=== PATIENT | female | born 1935 | race American Indian/Alaskan Native ===

== ENCOUNTER 2019-02-05 06:43 | Day surgery (SDC) | payer MEDICARE ==
[~2019-02-05 06:43] MED LIST: SODIUM CHLORIDE 0.9% 1000 ML 1,000 ML IV SCH; ceFAZolin/Water 2 GM/20 ML 2 GM/20 ML SYRINGE IV NR
[2019-02-05] MEDS ORDERED: HEPARIN 10,000 UNITS/10 ML VIAL ONE (07:28)
[2019-02-05] MEDS ORDERED: SODIUM CHLORIDE 0.9% 250ML 250 ML ONE (07:28)
[2019-02-05] MEDS ORDERED: THROMBIN (RECOMBINANT) 5,000 UNIT VIAL TP ONE ×2 (07:29→09:16)
[2019-02-05] MEDS ORDERED: PROTAMINE SULFATE 50 MG/5 ML INJ ONE (07:29)
[2019-02-05] MEDS ORDERED: GELATIN SPONGE SIZE 100 TP ONE ×2 (07:29→09:15)
--- NOTE | 2019-02-05 07:30 | Anesthesia Day of Surgery ---
Anesthesia Day of Surgery - Day of Surgery Patient Examined: Yes Patient H&P Reviewed: Yes Patient is NPO: Yes Beta Blockers: Yes
--- NOTE | 2019-02-05 07:30 | Anesthesia Consultation ---
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 ACCESS RT UPPER CHEST) Hx Hypothyroidism: Yes - Hematic Hx Anemia: Yes - Other Systems Hx Alcohol Use: No Hx Substance Use: No Hx Cancer: No
[2019-02-05] MEDS ORDERED: fentaNYL 100 MCG/2 ML INJ IV PRN (07:38)
[2019-02-05] MEDS ORDERED: LIDOCAINE MPF (2%) 20 MG/1 ML VIAL 5 ML ONE (07:41)
[2019-02-05] MEDS ORDERED: PROPOFOL 200 MG/20 ML VIAL IV ONE (07:41)
[2019-02-05] MEDS ORDERED: HYDROmorphone 1 MG/1 ML INJ ONE (07:41)
[2019-02-05] MEDS ORDERED: HEPARIN 10,000 UNITS/10 ML VIAL IR ONE (09:13)
[2019-02-05] MEDS ORDERED: SODIUM CHLORIDE 0.9% 250 ML IVPB IR ONE (09:14)
[2019-02-05] MEDS ORDERED: SODIUM CHLORIDE 0.9% IRR 1,500 ML BOTTLE IR ONE (09:16)
[2019-02-05] MEDS ORDERED: PROTAMINE SULFATE 50 MG/5 ML INJ IV ONE (09:48)
[2019-02-05] MEDS ORDERED: ONDANSETRON 4 MG/2 ML INJ ONE (10:06)
[2019-02-05] MEDS ORDERED: oxyCODONE 5 MG TAB PO PRN (10:16)
--- NOTE | 2019-02-05 10:16 | Post Operative Note ---
Pre-op diagnosis: ESRD Post-op diagnosis: same Procedure: Left Arm AV Graft Insertion Anesthesia: GETA Surgeon: MARITA MASON Estimated blood loss: other (25ml) Pathology: none Condition: stable Disposition: PACU
--- NOTE | 2019-02-05 10:21 | Short Stay Summary ---
Short Stay Documentation Date of service: 02/05/19 - History H&P: obtained from office Past Medical History: diabetes, ESRD, stroke - Allergies and Medications Current Medications: Allergies No Known Allergies Allergy (Verified 02/04/19 09:41) Home Medications Medication Instructions Recorded Confirmed Last Taken Type Allopurinol 100 mg PO DAILY 02/02/19 02/05/19 02/04/19 09:00 History Aspirin 81 mg PO DAILY 02/02/19 02/05/19 02/04/19 19:00 History Atorvastatin 10 mg PO HS 02/02/19 02/05/19 02/04/19 19:00 History Carvedilol 3.125 mg PO BID 02/02/19 02/05/19 02/04/19 19:00 History Ferrous Sulfate 325 mg PO DAILY 02/02/19 02/05/19 02/04/19 19:00 History Folic Acid 1 mg PO DAILY 02/02/19 02/05/19 02/04/19 09:00 History Patric Packet 1 packet PO BID 02/02/19 02/05/19 02/04/19 19:00 History Levothyroxine 25 meq PO DAILY 02/02/19 02/05/19 02/04/19 09:00 History Memantine 10 mg PO DAILY 02/02/19 02/05/19 02/04/19 09:00 History Ranitidine HCl 150 mg PO BID 02/02/19 02/05/19 02/04/19 19:00 History Valsartan 80 mg PO BID 02/02/19 02/05/19 02/04/19 19:00 History Vitamin C 500 mg PO DAILY 02/02/19 02/05/19 02/04/19 09:00 History traMADol 50 mg PO PRN 02/02/19 02/05/19 02/04/19 19:00 History Active Medications Fentanyl (Sublimaze) 25 mcg IV Q15M PRN PRN Reason: Pain , Severe (7-10) Stop: 02/05/19 22:00 Sodium Chloride (Nacl 0.9% 1000 Ml) 1,000 mls @ 42 mls/hr IV DIRECT DAR Last Admin: 02/05/19 07:30 Dose: 42 mls/hr Documented by: Cefazolin Sodium (Ancef/Sterile Water 2 Gm/20 Ml) 2 gm in 20 mls @ 80 mls/hr IV PREOP NR; Protocol Stop: 02/05/19 23:59 Oxycodone HCl (Roxicodone) 5 mg PO Q4H PRN PRN Reason: Pain, Moderate (4-6) - Physical exam General appearance: no acute distress Lungs: Normal air movement Heart: Regular rate Extremities: no ischemia - Hospital course Hospital course: The patient was taken to the operating room and had a left arm av graft insertion performed. please refer to the operative note concerning the details of the procedure. the patient tolerated the procedure well and was discharged home in stable condition. - Disposition Condition at discharge: Stable Disposition: DC-01 TO HOME OR SELFCARE - Discharge Diagnoses (1) ESRD (end stage renal disease) Status: Acute Short Stay Discharge Plan Follow up with: MARIAN MILLS [Other] - 7 Days
--- NOTE | 2019-02-05 11:16 | Operative Report ---
STAFF SURGEON: Dr. Sylvain Vasquez. PREOPERATIVE DIAGNOSIS: End-stage renal disease. POSTOPERATIVE DIAGNOSIS: End-stage renal disease. PROCEDURE PERFORMED: Left arm AV graft insertion. COMPLICATIONS: None. ESTIMATED BLOOD LOSS: 25 mL. ANESTHESIA: General. INDICATIONS FOR PROCEDURE: This is an 83-year-old female with end-stage renal disease, on hemodialysis via right IJ PermCath who was in need of access creation. The patient had a preoperative vein mapping and was found to be in need of AV graft insertion. The patient and the patient's family were explained the risks, benefits and alternatives of procedure, expressed understanding and wished to proceed. DESCRIPTION OF PROCEDURE: After appropriate consent was obtained, the patient was brought back to the operating room and placed on the operating table in supine position with the left arm extended. The patient was given appropriate medication for general anesthesia, had LMA placed without difficulty. The left arm was prepped and draped in usual sterile fashion with ChloraPrep. Appropriate preoperative antibiotics were administered. Appropriate timeout was performed indicating correct patient, procedure, and site of the procedure. I then began the operation by making a longitudinal incision near the antecubital fossa. This was carried through the subcutaneous tissue with a combination of blunt dissection and electrocautery. Dissection was continued through the bicipital aponeurosis which allowed to expose the brachial artery. This was found to be suitable for arterial inflow. This was mobilized for appropriate distance both proximally and distally. We then proceeded to make a transverse incision near the axilla. This was carried through the subcutaneous tissue with a combination of blunt dissection and electrocautery. Dissection was continued through the fascia overlying the axillary neurovascular bundle. Axillary vein was identified and found to be suitable for venous outflow and was mobilized for appropriate distance both proximally and distally. We then proceeded to create a subcutaneous tunnel between the two incision sites bringing through a 4-7 mm Propaten graft. The patient was given 5000 units of unfractionated heparin. After appropriate time had elapsed, the vascular clamps were placed on the brachial artery, both proximally and distally. Longitudinal arteriotomy was made with an 11 blade and extended with Benitez scissors. The graft was appropriately spatulated and then an end-to-side anastomosis was performed with a running 6-0 Prolene suture. Once complete, flow was reestablished through the graft, we had a nice pulsatile flow. The graft was then cut to an appropriate length and spatulated. Vascular clamps were placed on the axillary vein, both proximally and distally. Longitudinal venotomy was made with an #11 blade and extended with Benitez scissors and then end-to-side anastomosis was performed with a running 5-0 Prolene suture. Once complete, flow was reestablished through the graft with a nice palpable thrill. The patient was then given a protamine for heparinization reversal. We then elected to obtain further hemostasis along the suture lines with hemostatic agents. Once we were satisfied with hemostasis, we then proceeded to close both wounds with a deep subcutaneous layer with interrupted 3-0 PDS and skin was approximated with iker. Appropriate dressing was placed. The patient tolerated the procedure well, emerged from the general anesthesia, had the LMA removed and was sent to recovery in stable condition. All the sponges, instrument and needle counts were correct at completion of the operation. JOB# [id number] FIDENCIO/CHEYANNE
[2019-02-05 13:31] VITALS: BP 133/56
--- NOTE | 2019-02-05 13:37 | Post Anesthesia Evaluation ---
- Post Anesthesia Evaluation Patient Participated: Yes Airway Patent: Yes Stable Respiratory Function: Yes Nausea/Vomiting: No Temp > 96.8F: Yes Pain Manageable: Yes Adequeate Hydration: Yes Anesthesia Complications: No
== END 2019-02-05 13:00 | disposition home or self-care (01) ==
LOC: OR 06:43
PROVIDERS: ATTEND Surgery Vascular Surgery
DX: I12.0 Hypertensive chronic kidney disease with stage 5 chronic kidney disease or end stage renal disease (principal); N18.6 End stage renal disease; J44.9 Chronic obstructive pulmonary disease, unspecified; K21.9 Gastro-esophageal reflux disease without esophagitis; E03.9 Hypothyroidism, unspecified; E78.00 Pure hypercholesterolemia, unspecified; E16.2 Hypoglycemia, unspecified; Z79.899 Other long term (current) drug therapy; Z79.82 Long term (current) use of aspirin; Z87.891 Personal history of nicotine dependence; Z87.440 Personal history of urinary (tract) infections; Z96.641 Presence of right artificial hip joint; Z98.890 Other specified postprocedural states; Z86.73 Personal history of transient ischemic attack (TIA), and cerebral infarction without residual deficits
CPT/HCPCS: 36830; 82803; A4649; C1768; J0690; J1170; J1644; J2405; J2704; J2720; J7030; J7050